=== PATIENT | female | born 1995 ===

== ENCOUNTER 2021-09-26 14:40 | Outpatient (CLI) | payer OTHER | END 2021-09-26 16:30 | disposition home or self-care (01) | LOC: PRENATAL 14:40 | PROVIDERS: ATTEND Obstetrics & Gynecology Maternal & Fetal Medicine | DX: O35.0XX1 Maternal care for (suspected) central nervous system malformation in fetus, fetus 1 (principal); O35.3XX1 Maternal care for (suspected) damage to fetus from viral disease in mother, fetus 1; O98.512 Other viral diseases complicating pregnancy, second trimester; O99.891 Other specified diseases and conditions complicating pregnancy; O44.02 Complete placenta previa NOS or without hemorrhage, second trimester; Z36.89 Encounter for other specified antenatal screening; Z3A.20 20 weeks gestation of pregnancy ==

== ENCOUNTER 2021-12-12 11:30 | Outpatient (CLI) | payer OTHER | END 2021-12-12 12:57 | disposition home or self-care (01) | LOC: PRENATAL 11:30 | PROVIDERS: ATTEND Obstetrics & Gynecology Maternal & Fetal Medicine | DX: O26.843 Uterine size-date discrepancy, third trimester (principal); O36.8131 Decreased fetal movements, third trimester, fetus 1; O44.03 Complete placenta previa NOS or without hemorrhage, third trimester; Z36.89 Encounter for other specified antenatal screening; Z3A.31 31 weeks gestation of pregnancy ==

== ENCOUNTER 2022-01-10 15:23 | Outpatient (CLI) | payer OTHER | END 2022-01-10 16:47 | disposition home or self-care (01) | LOC: PRENATAL 15:23 | PROVIDERS: ATTEND Obstetrics & Gynecology Maternal & Fetal Medicine | DX: O36.8199 Decreased fetal movements, unspecified trimester, other fetus (principal); O35.0XX0 Maternal care for (suspected) central nervous system malformation in fetus, not applicable or unspecified; O26.849 Uterine size-date discrepancy, unspecified trimester ==

== ENCOUNTER 2023-03-22 14:46 | Outpatient (CLI) | payer OTHER | END 2023-03-22 17:03 | disposition home or self-care (01) | LOC: PRENATAL 14:46 | PROVIDERS: ATTEND Obstetrics & Gynecology Maternal & Fetal Medicine | DX: O35.9XX0 Maternal care for (suspected) fetal abnormality and damage, unspecified, not applicable or unspecified (principal); O35.3XX0 Maternal care for (suspected) damage to fetus from viral disease in mother, not applicable or unspecified; Z3A.20 20 weeks gestation of pregnancy ==

== ENCOUNTER 2023-07-03 15:01 | Outpatient (CLI) | payer OTHER | END 2023-07-03 17:31 | disposition home or self-care (01) | LOC: PRENATAL 15:01 | PROVIDERS: ATTEND Obstetrics & Gynecology Maternal & Fetal Medicine | DX: O26.849 Uterine size-date discrepancy, unspecified trimester (principal); O36.8199 Decreased fetal movements, unspecified trimester, other fetus; Z3A.35 35 weeks gestation of pregnancy ==